=== PATIENT | male | born 1955 | race Hispanic/Latino ===

== ENCOUNTER 2020-01-13 22:07 | Emergency (ER) | payer SELFPAY ==
[2020-01-13 22:53] LABS: #Basophils 0.1 thou/uL (0.0-0.2); #Lymphocytes 0.4 thou/uL (1.20-3.40); #Monocytes 0.5 thou/uL (0.11-0.59); #Neutrophils 6.1 thou/uL (1.40-6.50); %Basophils 0.8 % (0.0-1.0); %Lymphocytes 5.3 % (21.0-51.0); %Monocytes 7.6 % (0.0-10.0); %Neutrophils 86.3 % (42.0-75.0); Hemoglobin 13.1 g/dL (14.0-18.0); Mean Corpuscular HGB CONC 32.4 g/dL (32.0-36.0); Mean Corpuscular Hemoglobin 27.2 pg (27.0-31.0); Mean Corpuscular Volume 84.1 fL (78.0-98.0); Mean Platelet Volume 5.5 fL (7.4-10.4); Platelet Count 392 thou/uL (130-400); RBC Distribution Width 12.2 % (11.5-14.5); Red Blood Cell (RBC) Count 4.82 mill/uL (4.70-6.10)
[2020-01-13 23:10] LABS: ALT (SGPT) 50 U/L (8-55); AST (SGOT) 30 U/L (5-34); Albumin 3.7 g/dL (3.4-4.8); Alkaline Phosphatase 80 U/L (40-110); Anion Gap 15 mmol/L (10-20); BUN (Urea Nitrogen) 31 mg/dL (8.4-25.7); Bilirubin, Total 0.5 mg/dL (0.2-1.2); Calc. Creatinine Clearance 0 mL/min (70-130); Calcium 8.4 mg/dL (7.8-10.44); Carbon Dioxide 22 mmol/L (23-31); Chloride 100 mmol/L (98-107); Estimated GFR-MDRD 53; Globulin 3.5 g/dL (2.4-3.5); Glucose 196 mg/dL (80-115); Protein, Total 7.2 g/dL (5.8-8.1); Sodium 132 mmol/L (136-145)
[2020-01-13] MEDS ORDERED: Sodium Chloride 0.9% 1,000 ML ONE (23:19)
--- NOTE | 2020-01-14 07:19 | RAD ---
2 VIEWS CHEST: Date: 01/13/2020 COMPARISON: None. HISTORY: Cough. FINDINGS: There is diffuse increased linear interstitial density. There is no pneumothorax or pleural fluid, an d no focal consolidation or alveolar edema. IMPRESSION: Interstitial prominence with no focal consolidation or alveolar edema. POS: [facility]
== END 2020-01-14 00:10 | disposition home or self-care (01) ==
LOC: MADERS 22:07
DX: E87.1 Hypo-osmolality and hyponatremia (principal); R61 Generalized hyperhidrosis; E11.65 Type 2 diabetes mellitus with hyperglycemia; E78.5 Hyperlipidemia, unspecified; I10 Essential (primary) hypertension
CPT/HCPCS: 71046; 80053; 84443; 85025; 96360; J7050